=== PATIENT | female | born 1935 | race Caucasian/White ===

== ENCOUNTER 2020-06-30 20:23 | Emergency (ER) | payer MEDICARE, OTHER ==
[2020-06-30 20:42] VITALS: RESP 18; TEMP 98.3
--- NOTE | 2020-06-30 21:30 | CT ---
EXAMINATION TYPE: CT facial bones wo con DATE OF EXAM: 06/30/2020 COMPARISON: None HISTORY: Fall, right orbital contusion and swelling. CT DLP: 1047 mGycm Automated exposure control for dose reduction was used. Images were obtained from the bottom of the mandible to the vertex of the brain without contrast. The orbital margins are intact. There is no evidence of a blowout fracture. There is no retro-orbital mass. The nasal bone appears intact. The globes are symmetric. The maxilla is intact. There is fairl y normal aeration of the paranasal sinuses. I see no bony destructive process. There is soft tissue swelling lateral to the right zygoma. Zygomatic arches are intact. The mandibula r ring is intact. There is 2 x 1 cm subcutaneous hematoma lateral to the right zygoma. IMPRESSION: Subcutaneous hematoma and soft tissue swelling on the right side lateral to the zygoma. No fracture s een.
--- NOTE | 2020-06-30 21:41 | CT ---
EXAMINATION TYPE: CT brain perla chaudhry con DATE OF EXAM: 06/30/2020 COMPARISON: CT brain 07/08/2009 HISTORY: Fall, right orbital contusion and swelling. CT DLP: 1047 mGycm Automated exposure control for dose reduction was used. There is cerebral cortical atrophy. There is no mass effect nor midline shift. There is no sign of in tracranial hemorrhage. The calvarium is intact. There is no evidence of cerebral edema. Cervical vertebra have fairly normal alignment. There is a minimal subluxation deformity at C7-T1. Th ere is some degenerative disc space narrowing at C5-6 and C6-7. The posterior elements are intact. Fa cet joints are intact. There is mild hypertrophic facet arthropathy. The skull base is intact. IMPRESSION: Cerebral atrophy. No acute intracranial abnormality. There is progression of atrophy compared to old exam. There are some spondylotic changes in the lower cervical spine. No fracture.
--- NOTE | 2020-06-30 21:43 | ED ---
Fall HPI - General Chief Complaint: Fall Stated Complaint: Fall Time Seen by Provider: 06/30/20 20:25 Source: patient, EMS Mode of arrival: EMS - History of Present Illness Initial Comments: 84-year-old female who presents emergency department from [facility]. Patient states that at 7 PM this evening she was reaching for her wheelchair from her bed. She ended up falling and hit her head on the concrete floor. Denies losing consciousness. She denies any headaches or visual changes. No neck pain. No nausea or vomiting. Patient sustained a little hematoma under h er right eye. Patient did not want to come to the hospital however as she is on Lovenox she states that the facility forced her. She denies any jaw pain. No chest pain or shortness of breath. No numbness, tingling or weakness in her tremors. No other alleviating, precipitating or modifying factors - Related Data Home Medications Medication Instructions Recorded Confirmed Acetaminophen [Tylenol] 650 mg PO Q4H PRN 06/30/20 06/30/20 Atorvastatin Calcium [Lipitor] 40 mg PO HS 06/30/20 06/30/20 Benzocaine 20 % Gel [Orajel] 1 applic DENTAL Q6H PRN 06/30/20 06/30/20 Cholecalciferol [Vitamin D3 (25 1,000 unit PO HS 06/30/20 06/30/20 Mcg = 1000 Iu)] Enoxaparin [Lovenox] 40 mg SQ DAILY 06/30/20 06/30/20 Furosemide [Lasix] 40 mg PO DAILY 06/30/20 06/30/20 Kayla-Lanta Suspension 30 ml PO Q6H PRN 06/30/20 06/30/20 200/200/20mg/5ml Levothyroxine Sodium 100 mcg PO DAILY 06/30/20 06/30/20 Losartan Potassium [Cozaar] 12.5 mg PO BID 06/30/20 06/30/20 Magnesium Hydroxide [Milk of 7,200 mg PO DAILY PRN 06/30/20 06/30/20 Magnesia Concentrate] carvediloL [Coreg] 1.5625 mg PO BID 06/30/20 06/30/20 polyethylene glycoL 3350 [Miralax] 17 gm PO HS 06/30/20 06/30/20 traMADol HCl [Ultram] 50 mg PO BID PRN 06/30/20 06/30/20 Allergies Allergy/AdvReac Type Severity Reaction Status Date / Time No Known Allergies Allergy Verified 06/30/20 20:52 Review of Systems ROS Statement: Those systems with pertinent positive or pertinent negative responses have been documented in the HPI. ROS Other: All systems not noted in ROS Statement are negative. Past Medical History Past Medical History: Atrial Fibrillation, Heart Failure, COPD, Deep Vein Thrombosis (DVT), Hyperlipidemia, Myocardial Infarction ([place]), Renal Disease Additional Past Medical History / Comment(s): VALERIA, Pulmonary HTN, chronic kidney disease, COVID, Atherosclerosis, Weakness History of Any Multi-Drug Resistant Organisms: None Reported Past Surgical History: No Surgical Hx Reported Past Psychological History: No Psychological Hx Reported Smoking Status: Former smoker Past Alcohol Use History: None Reported Past Drug Use History: None Reported General Exam Limitations: no limitations General appearance: alert, in no apparent distress Head exam: Present: normocephalic, other (ecchymosis under right eye to include right cheek) Eye exam: Present: normal appearance, PERRL, EOMI, other (no entrapment). Absent: scleral icterus, conjunctival injection, periorbital swelling Pupils: Present: other (no hyphema) ENT exam: Present: normal exam, mucous membranes moist, other (no broken teeth) Neck exam: Present: normal inspection. Absent: tenderness, meningismus, lymphadenopathy Respiratory exam: Present: normal lung sounds bilaterally. Absent: respiratory distress, wheezes, rales, rhonchi, stridor Cardiovascular Exam: Present: regular rate, normal rhythm, normal heart sounds. Absent: systolic murmur, diastolic murmur, rubs, gallop, clicks Extremities exam: Present: normal inspection, full ROM, normal capillary refill. Absent: tenderness, pedal edema, joint swelling, calf tenderness Neurological exam: Present: alert, oriented X3, CN II-XII intact Psychiatric exam: Present: normal affect, normal mood Course Vital Signs 06/30/20 06/30/20 20:36 21:42 Temperature 98.3 F Pulse Rate 68 63 Respiratory 18 18 Rate Blood Pressure 128/89 139/85 O2 Sat by Pulse 98 97 Oximetry Medical Decision Making - Medical Decision Making Upon arrival patient is placed into room 9. A thorough history and physical exam was performed. No signs of ocular entrapment. Patient was sent over for CT of her brain and cervical spine as well as a facial CT. I did review the patient's imaging which demonstrates a subcutaneous hematoma soft tissue swelling with no acute fracture. Results are discussed the patient. She did remain neurologically intact. Patient is requesting to go back to her facility at this time. She was given written and verbal discharge instructions and discharged home Disposition Clinical Impression: Fall, Blunt trauma of face Disposition: HOME SELF-CARE Condition: Stable Instructions (If sedation given, give patient instructions): Fall Prevention for Older Adults (ED) Additional Instructions: Follow up with your PCP. Return to the ED for any new or worsening symptoms. Is patient prescribed a controlled substance at d/c from ED?: No Referrals: Cooper Diamond MD [Primary Care Provider] - 1-2 days Time of Disposition: 21:43
[2020-06-30 21:57] VITALS: BP 139/85; PULSE 63
== END 2020-06-30 22:25 | disposition home or self-care (01) ==
LOC: EC 20:23
DX: S00.83XA Contusion of other part of head, initial encounter (principal); I13.0 Hypertensive heart and chronic kidney disease with heart failure and stage 1 through stage 4 chronic kidney disease, or unspecified chronic kidney disease; I50.9 Heart failure, unspecified; N18.9 Chronic kidney disease, unspecified; E78.5 Hyperlipidemia, unspecified; I25.2 Old myocardial infarction; I48.91 Unspecified atrial fibrillation; F03.90 Unspecified dementia, unspecified severity, without behavioral disturbance, psychotic disturbance, mood disturbance, and anxiety; Z79.01 Long term (current) use of anticoagulants; Z87.891 Personal history of nicotine dependence; Z86.718 Personal history of other venous thrombosis and embolism; Z79.899 Other long term (current) drug therapy; Z86.16 Personal history of COVID-19; W06.XXXA Fall from bed, initial encounter; Y92.009 Unspecified place in unspecified non-institutional (private) residence as the place of occurrence of the external cause
CPT/HCPCS: 70450; 70486; 72125; 99284